=== PATIENT | female | born 1985 | race Caucasian/White ===

== ENCOUNTER 2021-10-04 06:01 | Day surgery (SDC) | payer OTHER ==
[~2021-10-04] VITALS: Ht 157.5 cm; Wt 75.3 kg
[2021-10-04] VITALS (7 sets, daily range): BP systolic 112–128; BP diastolic 69–86
[~2021-10-04 06:01] MED LIST: ACET-897 PO; ACETAMINOPHEN 500 MG TAB PO ONE; GABAPENTIN 300 MG CAP PO ONE; IBUP-1114 PO; LR 1,000 ML IV ONE; ceFAZolin SOD 2 GM in IV 1 EA IV ONE
[2021-10-04] MEDS ORDERED: ACETAMINOPHEN 500 MG TAB PO ONE (06:40)
[2021-10-04 06:46] LABS: HEMATOCRIT 38.8 % (36.0-47.0); HEMOGLOBIN 12.6 g/dl (12.0-15.5); MEAN CORPUSCULAR HEMOGLOBIN 30.7 pg (27.0-33.0); MEAN CORPUSCULAR HGB CONC 32.5 g/dl (32.0-36.5); MEAN CORPUSCULAR VOLUME 94.4 fl (80.0-96.0); PLATELET COUNT, AUTOMATED 316 10^3/uL (150-450); RED BLOOD COUNT 4.11 10^6/uL (4.00-5.40); WHITE BLOOD COUNT 11.8 10^3/uL (4.0-10.0)
[2021-10-04 07:13] LABS: BLOOD UREA NITROGEN 12 MG/DL (7-18); CALCIUM LEVEL 9.2 MG/DL (8.5-10.1); CARBON DIOXIDE LEVEL 24 MEQ/L (21-32); CHLORIDE LEVEL 109 MEQ/L (98-107); CREATININE FOR GFR 0.88 MG/DL (0.55-1.30); GLOMERULAR FILTRATION RATE > 60.0 (>60); GLUCOSE, FASTING 85 MG/DL (70-100); SODIUM LEVEL 140 MEQ/L (136-145)
[2021-10-04] MEDS ORDERED: FLUORESCEIN 10% (100MG/ML) 5 ML VIAL As Ordered ONE (07:13)
[2021-10-04] MEDS ORDERED: BUPIVACAINE HCL 0.5% 30 ML VIAL As Ordered ONE (07:13)
[2021-10-04 07:18] LABS: HCG, SERUM QUALITATIVE NEGATIVE (NEGATIVE)
[2021-10-04] MEDS ORDERED: ROCURONIUM BROMIDE 50 MG/5 ML VIAL As Ordered ONE ×2 (07:23→08:33)
[2021-10-04] MEDS ORDERED: ONDANSETRON 4MG/2ML VIAL As Ordered ONE ×2 (07:23→11:52)
[2021-10-04] MEDS ORDERED: LIDOCAINE 2% 100MG/5ML SDV (FOR ANES.) As Ordered ONE (07:23)
[2021-10-04] MEDS ORDERED: propofoL 200 MG/20 ML VIAL As Ordered ONE (07:23)
[2021-10-04] MEDS ORDERED: MIDAZOLAM INJ 2MG/2ML VIAL (J2250 PER 1MG) As Ordered ONE (07:24)
[2021-10-04] MEDS ORDERED: fentaNYL 250 MCG/5 ML INJECTION (J3010) As Ordered ONE (07:24)
[2021-10-04] MEDS ORDERED: dexameTHASONE 4 MG/ML 1ML VIAL (J1100 PER 1MG) As Ordered ONE (07:33)
[2021-10-04] MEDS ORDERED: SEVOFLURANE INHAL SOLN 250 ML BTL As Ordered ONE (08:08)
[2021-10-04] MEDS ORDERED: KETOROLAC 60MG 2ML VIAL As Ordered ONE (08:39)
[2021-10-04] MEDS ORDERED: SUGAMMADEX SODIUM 500 MG/5 ML VIAL (BRIDION) As Ordered ONE (08:40)
[2021-10-04] MEDS ORDERED: HYDROmorphone HCL 2 MG/ML 1ML VIAL As Ordered ONE (08:40)
[2021-10-04] MEDS ORDERED: METOCLOPRAMIDE INJ 10MG/2ML VIAL (J2765 PER 1) As Ordered ONE (09:03)
[2021-10-04] MEDS ORDERED: PROMETHAZINE 25 MG TAB PO PRN (11:15)
[2021-10-04] MEDS ORDERED: oxyCODONE 5MG TAB PO PRN ×3 (11:20→11:55)
[2021-10-04] MEDS ORDERED: ACETAMINOPHEN 500 MG TAB PO PRN (11:20)
[2021-10-04] MEDS ORDERED: SIMETHICONE 80MG CHEW TAB PO PRN (11:20)
[2021-10-04] MEDS ORDERED: fentaNYL 100 MCG/2 ML INJECTION (J3010) IV PRN (11:55)
[2021-10-04] MEDS ORDERED: LR 1,000 ML IV SCH (11:55)
--- NOTE | 2021-10-04 12:16 | ROOPDOC ---
[facility] Report Of Operation Report of Operation DATE OF PROCEDURE: 10/04/21 PREPROCEDURE DIAGNOSES: Severe dysmenorrhea, Chronic pelvic pain POSTPROCEDURE DIAGNOSES: Severe dysmenorrhea, chronic pelvic pain, pelvic adhesive disease. PROCEDURE PERFORMED: Total laparoscopic hysterectomy, bilateral salpingectomy, adhesiolysis, cystoscopy SURGEON: Cristobal Maria DO, FACOG TRANSIT OPERATOR: Duong Coon DO ANESTHESIA: GETA ESTIMATED BLOOD LOSS: Approximately 250ml IV FLUIDS: 1500ml LR URINE OUTPUT: 200ml via daniel catheter COMPLICATIONS: None FINDINGS: Normal liver, gallbladder, and gastric curve. Significant pelvic adhesive disease. Fallopian tubes with filmy adhesions to the ovaries and uterus. Uterus with filmy adhesions to the omentum, posterior cul de sac, and pelvic sidewalls. Fallopian tubes clubbed appearing and fimbriated ends adhered to ovaries. Cystoscopy at case conclusion demonstrated an intact bladder with no sutures, lesions, or defects, and brisk efflux of fluorescein stained urine from each ureteral orifice. SPECIMENS REMOVED: Uterus, cervix, bilateral fallopian tubes PROCEDURE NOTE: The risks, benefits, indications, and alternatives of the procedure were reviewed with the patient and informed consent was obtained. The patient was taken to the operating room where general anesthesia was obtained without difficulty. The patient was then placed in the lithotomy position using Sukumar Stirrups and her arms were gently tucked to her sides with padding. She was then prepped and draped in the usual sterile fashion and a Daniel catheter was placed to drain the bladder. A surgical time-out was performed and the patient's identity and planned procedure were verified with the operative team. A sterile speculum was placed in the patients vagina and the cervix was visualized. A single stitch of 0-vicryl was used to grasp the anterior lip of the cervix. The AppGeek-care uterine manipulator was then placed to provide means to manipulate the uterus. The speculum was then removed from the vagina. Gloves were exchanged and attention was then turned to the patients abdomen were a 5mm skin incision was made in the inferior aspect of the umbilicus. A 5mm trocar and sleeve were then carefully introduced into the peritoneal cavity under direct visualization at a 90-degree angle while tenting up the abdominal wall. Intra-peritoneal placement was confirmed under direct visualization and entry pressure was noted to be <5 mm Hg. A pneumoperitoneum was obtained with several liters of CO2 gas, maximum pressure of 15 mmHg. Upon entry into the peritoneal cavity structures immediately below the incision were inspected and found to be free of injury. A survey of the patient's abdomen and pelvis was notable for a normal liver, gallbladder, and gastric curve. Significant filmy adhesions were noted in the pelvis. The fallopian tubes were adhered to the uterus and ovaries bilaterally. The uterus had filmy adhesions to the posterior cul de sac and pelvic side bey. Two additional ports, including an 8mm one on the left side of the abdomen and a 5mm one in the right side of the abdomen were then placed under direct laparoscopic guidance The fallopian tubes were removed first. The filmy adhesions on the tubes were taken down with the ligasure. The left fallopian tube was then grasped and the underlying mesosalpinx was cauterized and transected using the ligasure down to the uterine cornua. The fallopian tube was then amputated at its connection to the uterus and removed from the abdomen. An identical procedure was then performed on the patient's right fallopian tube. Both tubes were removed intact and in their entirety from the abdomen. Operative sites revealed hemostasis. Next, stabilizing the uterus with the manipulator, the Ligasure was then used to clamp, cut, and ligate the round ligaments bilaterally. The anterior broad l igament was then incised along the bladder reflection bilaterally, and the bladder was dissected off the lower uterine segment until endopelvic fascia was visualized. The ureters were then identified bilaterally coursing along the lateral pelvic sidewalls. The utero-ovarian ligaments were then ligated as close as possible to the uterine corpus with the Ligasure. The pedicles were then reinspected and excellent hemostasis was noted. The uterine arteries were then identified, skeletonized, and ligated using Ligasure electrocautery. The uterosacral ligaments and cardinal ligaments were transected bilaterally using the Ligasure. The colpotomy was then made using the Ligasure monopolar L hook. The colpotomy was continued circumferentially just inferior to the cervix using the V-care colpotomy ring as a guide. The entire cervix and uterus was then successfully amputated from the vagina. The uterus and cervix were then delivered through the vagina and sent off the operative field to pathology. There was noted to be significant bleeding at the vaginal cuff. The vaginal cuff was closed vaginally using 0-Vicryl suture in a running fashion with additional multiple figure of eight stitches to achieve excellent hemostasis. The patient's daniel catheter was removed. The cystoscope was then primed and advanced through the urethra and into the bladder. Both ureteral orifices were identified and bilateral efflux of fluorescein stained urine was visualized from each ureteral orifice. A survey of the bladder showed no defects, lesions, or sutures. The cystoscope was then removed and the Daniel catheter was replaced to drain the bladder. Gloves and gown were then exchanged and attention was returned to the patient's abdomen which was then copiously irrigated. All pedicles and the vaginal cuff were noted to be hemostatic. Teja-seal was then applied to the vaginal cuff and the operative pedicles to good effect. Final inspection confirmed excellent hemostasis. The pneumoperitoneum was then released. All trocars were removed under direct visualization and there was no bleeding seen from the trocar sites. The skin incisions were then re-approximated using 4-0 monocryl suture in a subcuticular fashion and then they were covered with dermabond. A manual exam was then performed and the vagina demonstrated excellent suspension and elevation. The vagina was copiously irrigated to good effect. Inspection of the cuff revealed hemostasis. A vaginal sweep was performed and confirmed no retained foreign objects remained in the vagina. At the completion of the case the sponge, instrument, and needle counts were correct x 2. The patient was taken to the PACU in stable condition. CRISTOBAL MARIA DO Oct 04, 2021 12:16
--- NOTE | 2021-10-04 17:07 | IPNPDOC ---
Text Note Date of Service The patient was seen on 10/04/21. NOTE Patient seen this evening. Alka is s/p TLH, BS, cysto from this morning, finishing at about 1100. At the bedside she endorses pelvic discomfort but it is not severe. She also reports numbness at the lateral border of her left hand. No other locations. She is ambulating and just voided on her own (200ml) after daniel removal. She reports feeling very hungry and would like to eat. Vitals - HR 80s-100s, normotensive, afebrile General - Ambulated back from the restroom with complete independence. Returned to bed without issues. Pleasant and conversant. Abdomen - Soft, nondistended. Port sites well appearing. Extremities - No edema UO - appropriate. Just met DTV after daniel removal (200ml). Alka is doing well. Will monitor overnight. Notified patient regarding PRN pain medications as needed. Continue routine postoperative care. Check CBC in the AM. Anticipate DC home tomorrow morning. All questions answered. Nahum Hager I+Nahum GONZALEZ I+O Laboratory Tests 10/04/21 06:28 Vital Signs Date Time Temp Pulse Resp B/P (MAP) Pulse Ox O2 Delivery O2 Flow Rate FiO2 10/04/21 15:15 98.7 105 18 118/74 (89) 98 Nasal Cannula 1.0 ENID MARIA DO Oct 04, 2021 17:07
[2021-10-04] MEDS: KETOROLAC 30 MG/ML 1ML VIAL IV SCH ×2 (17:09→23:24)
[2021-10-04] MEDS: DOCUSATE SODIUM 100MG CAPSULE PO SCH (20:14)
[2021-10-05] MEDS: KETOROLAC 30 MG/ML 1ML VIAL IV SCH (05:32)
[2021-10-05 06:00] VITALS: BP 98/58
[2021-10-05 06:06] LABS: BASO % 0.2 % (0.0-1.0); EOS % 0.1 % (0.0-3.0); HEMATOCRIT 30.2 % (36.0-47.0); LYMPH # 2.9 10^3/uL (1.5-5.0); LYMPH % 18.5 % (24.0-44.0); MEAN CORPUSCULAR HGB CONC 32.8 g/dl (32.0-36.5); MEAN CORPUSCULAR VOLUME 94.7 fl (80.0-96.0); MONO % 6.6 % (2.0-8.0); NEUTROPHILS # 11.5 10^3/uL (1.5-8.5); NEUTROPHILS % 74.1 % (36.0-66.0); PLATELET COUNT, AUTOMATED 278 10^3/uL (150-450); RED BLOOD COUNT 3.19 10^6/uL (4.00-5.40); WHITE BLOOD COUNT 15.5 10^3/uL (4.0-10.0)
[2021-10-05 06:12] LABS: HEMOGLOBIN 9.9 g/dl (12.0-15.5)
[2021-10-05 06:31] LABS: BLOOD UREA NITROGEN 7 MG/DL (7-18); CALCIUM LEVEL 8.4 MG/DL (8.5-10.1); CARBON DIOXIDE LEVEL 25 MEQ/L (21-32); CHLORIDE LEVEL 110 MEQ/L (98-107); GLOMERULAR FILTRATION RATE > 60.0 (>60); GLUCOSE, FASTING 91 MG/DL (70-100); SODIUM LEVEL 142 MEQ/L (136-145)
[2021-10-05] MEDS ORDERED: OXYC-517 PO (07:20)
--- NOTE | 2021-10-05 07:24 | DS.PDOC ---
Discharge Summary General Date of Admission Date of Discharge 10/05/21 Discharge Summary HOSPITAL COURSE: Ms. Lucas is a 35 yo female who underwent an uncomplicated, scheduled total laparoscopic hysterectomy, bilateral salpingectomy, and cystoscopy on 04Oct2021 for severe dysmenorrhea, dyspareunia, and chronic pelvic pain. Her post operative course was unremarkable. She met all appropriate discharge criteria the morning after her surgery. She was ambulating, voiding on her own, tolerating a regular diet, and her pain was well controlled with PO pain medications. DISCHARGE MEDICATIONS: Please see below. ALLERGIES: Please see below. PHYSICAL EXAMINATION ON DISCHARGE: VITAL SIGNS: Please see below. GENERAL: AAOX3, NAD ABDOMINAL EXAMINATION: Abdomen soft, nondistended. Laparoscopic port sites well appearing. Covered with dermabond. No bruising. EXTREMITIES: No edema PSYCHIATRIC EXAMINATION: Affect appropriate LABORATORY DATA: Please see below. ACTIVITY: Pelvic rest for 6 weeks DIET: Regular DISCHARGE PLAN: Discharge home DISPOSITION: Discharge home on 05Oct2021 DISCHARGE INSTRUCTIONS: Postoperatively, you should expect significant abdominal soreness following a laparoscopic surgery. We will provide oral pain medications, tylenol, motrin, and oxycodone. Sometimes, narcotic medications can cause constipation, and we recommend using a stool softener, drinking plenty of water, increasing the fiber in your diet, and drinking prune juice if constipation becomes a significant issue. It will be normal to have some vaginal spotting or discharge for the first couple weeks after surgery. You should not have heavy bleeding. Dressings: Your laparoscopic incisions are closed with absorbable stitches and then covered with Dermabond (a medical adhesive/glue). You may shower on the day following surgery. It is normal to have some pain at the incisions that is sharp. Signs of infection at the incision include pain, redness, swelling and drainage of pus fr om the incision. Precautions: Please contact the [facility] or the Emergency Room after hours for any of the following symptoms, * Fever (temperature > 101F) * Significant pain not controlled with oral pain medications * Significant nausea and vomiting with inability to tolerate any food or m edication * Significant redness of the incisions or drainage from the incisions * Significant vaginal bleeding that is soaking through multiple pads Return to normal: You should be able to resume normal activities and exercise within 4-6 weeks. You may notice more soreness with abdominal exercises, and this is to be expected. Avoid heavy lifting greater than 10 pounds until 4 weeks after surge ry. Nothing in the vagina (no tampons, intercourse, or douching) for 6-8wks. You may resume sexual activity 6-8 weeks after surgery when cleared by your surgeon. ITEMS TO FOLLOWUP ON ON OUTPATIENT: 1. post op appointment in 2 weeks DISCHARGE CONDITION: Stable. TIME SPENT ON DISCHARGE: Greater than 20 minutes. Enid Garcia DO Vital Signs/I&Os Vital Signs Date Time Temp Pulse Resp B/P (MAP) Pulse Ox O2 Delivery O2 Flow Rate FiO2 10/05/21 06:00 98.3 74 18 98/58 (71) 97 Room Air 10/04/21 15:15 1.0 I&O- Last 24 Hours up to 6 AM 10/05/21 06:00 Intake Total 2910 ml Output Total 1300 ml Balance 1610 ml Laboratory Data Labs 24H Laboratory Tests 2 10/05/21 05:51: Immature Granulocyte % (Auto) 0.5, Neutrophils (%) (Auto) 74.1H, Lymphocytes (%) (Auto) 18.5L, Monocytes (%) (Auto) 6.6, Eosinophils (%) (Auto) 0.1, Basophils (%) (Auto) 0.2, Neutrophils # (Auto) 11.5H, Lymphocytes # (Auto) 2.9, Monocytes # (Auto) 1.0H, Eosinophils # (Auto) 0.0, Basophils # (Auto) 0.0, Nucleated Red Blood Cells % (auto) 0.0, Anion Gap 7L, Glomerular Filtration Rate > 60.0, Calcium Level 8.4L CBC/BMP Laboratory Tests 10/05/21 05:51 Discharge Medications Scheduled PRN Acetaminophen (Tylenol Extra Strength) 500 Mg Tablet, 1,000 MG PO PRN PRN for p, (Reported) Ibuprofen (Ibuprofen) 400 Mg Tablet, 800 MG PO PRN PRN for P, (Reported) Oxycodone HCl (Oxycodone HCl) 5 Mg Tablet, 5 MG PO Q6H PRN for MODERATE PAIN (PS 5-7) Allergies Coded Allergies: No Known Allergies (Unverified , 09/26/21) ENID GARCIA DO Oct 05, 2021 07:24
[2021-10-05] MEDS: DOCUSATE SODIUM 100MG CAPSULE PO SCH (08:46)
[2021-10-05] MEDS ORDERED: IBUPROFEN 800 MG TAB PO SCH (13:00)
== END 2021-10-05 09:45 | disposition home or self-care (01) ==
LOC: M SDC 06:01 → M MS5PR 12:35 → M SDC 10-05 09:45
PROVIDERS: ATTEND Obstetrics & Gynecology
DX: N94.10 Unspecified dyspareunia (principal); N80.0 Endometriosis of uterus; D25.2 Subserosal leiomyoma of uterus; N72 Inflammatory disease of cervix uteri; F41.9 Anxiety disorder, unspecified; F32.9 Major depressive disorder, single episode, unspecified; K21.9 Gastro-esophageal reflux disease without esophagitis; G43.909 Migraine, unspecified, not intractable, without status migrainosus; Z79.899 Other long term (current) drug therapy
CPT/HCPCS: 36415; 58571; 80048; 84703; 85025; 85027; 86850; 86900; 86901; 88307; 96374; 96376; J0690; J1100; J1170; J1885; J2250; J2405; J2765; J3010

== ENCOUNTER 2025-06-21 11:22 | Emergency (ER) | payer OTHER ==
[~2025-06-21] VITALS: Ht 157.5 cm; Wt 69.4 kg
[~2025-06-21 11:22] MED LIST changes: -ACETAMINOPHEN 500 MG TAB PO ONE; -GABAPENTIN 300 MG CAP PO ONE; -LR 1,000 ML IV ONE; +OXYC-517 PO; -ceFAZolin SOD 2 GM in IV 1 EA IV ONE
[2025-06-21 13:01] LABS: KETONE, URINE AUTO RFX NEGATIVE (NEGATIVE); LEUKOCYTE ESTERASE UR AUTO RFX NEGATIVE (NEGATIVE); MUCUS, URINE RFX SMALL (NEGATIVE); NITRITE, URINE AUTO RFX NEGATIVE (NEGATIVE); RBC, URINE AUTO RFX 0 /HPF (0-3); SQUAM EPITHELIAL CELL UR AURFX 2 /HPF (0-6); WBC, URINE AUTO RFX 0 /HPF (0-3)
[2025-06-21 13:07] LABS: BASO # 0.0 10^3/uL (0.0-0.2); BASO % 0.7 % (0.0-1.0); EOS # 0.6 10^3/uL (0.0-0.5); EOS % 9.9 % (0.0-3.0); LYMPH # 1.7 10^3/uL (1.5-5.0); LYMPH % 27.6 % (24.0-44.0); MONO # 0.6 10^3/uL (0.0-0.8); MONO % 9.2 % (2.0-8.0); NEUTROPHILS # 3.2 10^3/uL (1.5-8.5); NEUTROPHILS % 52.3 % (36.0-66.0); PLATELET COUNT, AUTOMATED 316 10^3/uL (150-450)
[2025-06-21 13:16] LABS: INR 0.88
[2025-06-21 13:30] LABS: ALT/SGPT 13 U/L (7.0-40); AST/SGOT 14 U/L (<34); CALCIUM LEVEL 9.2 MG/DL (8.5-10.1); CARBON DIOXIDE LEVEL 25 MMOL/L (20-31); CHLORIDE LEVEL 107 MMOL/L (98-107); CREATININE FOR GFR 0.76 MG/DL (0.55-1.30); GLOMERULAR FILTRATION RATE > 90.0 (>60); POTASSIUM SERUM 4.5 MMOL/L (3.5-5.1); SODIUM LEVEL 140 MMOL/L (136-145)
[2025-06-21] MEDS ORDERED: ISOVUE-370 76% 100 ML VIAL As Ordered ONE (13:46)
[2025-06-21 14:43] VITALS: BP 117/72; TEMP 98.7; O2SAT 100
== END 2025-06-21 14:46 | disposition home or self-care (01) ==
LOC: M ED 12:30
DX: N83.291 Other ovarian cyst, right side (principal); A09 Infectious gastroenteritis and colitis, unspecified; M32.9 Systemic lupus erythematosus, unspecified; F41.9 Anxiety disorder, unspecified; F43.10 Post-traumatic stress disorder, unspecified; F32.A Depression, unspecified; F12.10 Cannabis abuse, uncomplicated; Z79.1 Long term (current) use of non-steroidal anti-inflammatories (NSAID); Z79.899 Other long term (current) drug therapy
CPT/HCPCS: 36415; 71046; 74177; 80048; 80076; 81001; 83605; 83690; 85025; 85610; 85730; 93005; 93041; 99284; Q9967